=== PATIENT | male | born 2000 | race African-American/Black ===

== ENCOUNTER 2022-06-20 12:08 | Emergency (ER) | payer SELFPAY ==
[2022-06-20 13:22] LABS: #Basophils 0.1 10x3/uL (0.0-0.2); #Eosinphils 1.8 10x3/uL (0.0-0.5); #Monocytes 0.6 10x3/uL (0.0-1.1); %Basophils 1.1 % (0.0-2.0); %Eosinophils 19.3 % (0.0-6.0); %Lymphocytes 19.7 % (18.0-47.0); %Monocytes 6.3 % (0.0-10.0); %Neutrophils 53.2 % (40.0-75.0); Hemoglobin 18.4 g/dL (13.5-17.5); Mean Corpuscular HGB CONC 35.9 g/dL (32.0-36.0); Mean Corpuscular Hemoglobin 29.1 pg (27.0-33.0); Mean Corpuscular Volume 80.9 fl (81.2-95.1); Platelet Count 251 10x3/uL (150-450); RBC Distribution Width 12.9 % (11.5-14.5); Red Blood Cell (RBC) Count 6.33 10x6/uL (4.32-5.72); White Blood Cell (WBC) Count 9.3 10x3/uL (3.5-10.5)
[2022-06-20 14:01] LABS: ALT (SGPT) 29 U/L (8-55); AST (SGOT) 25 U/L (5-34); Albumin 4.5 g/dL (3.5-5.0); Alkaline Phosphatase 103 U/L (40-110); Anion Gap 15 mmol/L (10-20); BUN (Urea Nitrogen) 18 mg/dL (8.9-20.6); Bilirubin, Total 0.6 mg/dL (0.2-1.2); Calc. Creatinine Clearance 0 mL/min (70-130); Carbon Dioxide 24 mmol/L (22-29); Chloride 105 mmol/L (98-107); Estimated GFR 84; Globulin 3.2 g/dL (2.4-3.5); Glucose 88 mg/dL (70-105); Potassium 4.6 mmol/L (3.5-5.1); Protein, Total 7.7 g/dL (6.0-8.3); Sodium 139 mmol/L (136-145)
== END 2022-06-20 14:24 | disposition home or self-care (01) ==
LOC: CSHERS 12:08
DX: J18.9 Pneumonia, unspecified organism (principal)
CPT/HCPCS: 71045; 80053; 84484; 85025; 85379; 93005

== ENCOUNTER 2023-02-17 09:28 | Emergency (ER) | payer SELFPAY | END 2023-02-17 12:29 | disposition home or self-care (01) | LOC: CSHERS 09:28 | DX: J20.9 Acute bronchitis, unspecified (principal); J45.909 Unspecified asthma, uncomplicated | CPT/HCPCS: 71046 ==